=== PATIENT | female | born 1970 | race Caucasian/White ===

== ENCOUNTER 2017-07-29 21:58 | Emergency (ER) | payer OTHER ==
[~2017-07-29] VITALS: Ht 157.5 cm; Wt 86.2 kg
[2017-07-29] MEDS ORDERED: ZANTAC150 M3 (22:30)
[2017-07-29] MEDS ORDERED: ASPIRIN81 M1 (22:30)
[2017-07-29] MEDS ORDERED: CARDIZEM CD120 MG (22:30)
[2017-07-30] MEDS ORDERED: DOLOGESIC 500-1 EACH PO (04:12)
== END 2017-07-30 04:08 | disposition home or self-care (01) ==
LOC: ER 21:58
DX: R00.2 Palpitations (principal); R20.0 Anesthesia of skin

== ENCOUNTER 2018-11-17 21:42 | Emergency (ER) | payer OTHER ==
[~2018-11-17] VITALS: Ht 157.5 cm; Wt 89.8 kg
[~2018-11-17 21:42] MED LIST: ASPIRIN81 M1; CARDIZEM CD120 MG; DOLOGESIC 500-1 EACH PO; ZANTAC150 M3
[2018-11-18] MEDS ORDERED: NAPROXEN500 MG PO (02:48)
== END 2018-11-18 04:22 | disposition home or self-care (01) ==
LOC: ER 21:42
DX: K29.70 Gastritis, unspecified, without bleeding (principal); M94.0 Chondrocostal junction syndrome [Tietze]; K20.9 Esophagitis, unspecified